=== PATIENT | male | born 1980 | race Two or more races ===

== ENCOUNTER 2025-07-09 08:42 | Outpatient (CLI) | payer MEDICAID, SELFPAY | END 2025-07-09 08:43 | disposition home or self-care (01) | PROVIDERS: PCP Family Medicine; Visit Provider Family Medicine | DX: Z13.1 Encounter for screening for diabetes mellitus (principal); Z13.6 Encounter for screening for cardiovascular disorders | CPT/HCPCS: 80048; 80061 ==